=== PATIENT | female | born 1985 | race Caucasian/White ===

== ENCOUNTER 2018-04-05 13:40 | Emergency (ER) | payer SELFPAY ==
--- NOTE | 2018-04-05 14:51 | ER ---
Nurse's Notes [facility] Name: Sea Garcia Age: 32 yrs Sex: Female : 1985 Arrival Date: 04/05/2018 Time: 13:44 Bed 17 Private MD: Diagnosis: Abrasion of right forearm;Contusion of right thigh Presentation: 04/05 13:45 Presenting complaint: Patient states: "I fell [place] and I cut my wrist that sv happened today around 1300." c/o right buttock pain. Transition of care: patient was not received from another setting of care. Complicating Factors: There are no complicating factors for this patient. Onset of symptoms was April 05, 2018 at 13:00. Risk Assessment: Do you want to hurt yourself or someone else? Patient reports no desire to harm self or others. Initial Sepsis Screen: Does the patient meet any 2 criteria? No. Patient's initial sepsis screen is negative. Does the patient have a suspected source of infection? No. Patient's initial sepsis screen is negative. Care prior to arrival: None. 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 - Social history:: Smoking status: Patient/guardian denies using tobacco. - Ebola Screening: : No symptoms or risks identified at this time. - : The history from the nurse's notes was reviewed. Vital Signs: 13:47 BP 114 / 96; Pulse 78; Resp 18; Temp 98.7; Pulse Ox 98% ; Weight 72.57 kg; Height 5 ft. sv 4 in. (162.56 cm); Pain 6/10; 13:47 Body Mass Index 27.46 (72.57 kg, 162.56 cm) sv ED Course: 13:44 Patient arrived in ED. sv 13:46 Triage completed. sv 13:49 Arm band placed on left wrist. sv 13:53 Mickail, Adalberto, PA is PHCP. osman 13:53 Anderson Longo MD is Attending Physician. osman Administered Medications: No medications were administered Outcome: 14:09 Medical screen evaluation completed per provider. Patient declined treatment. lilian 14:51 Discharge ordered by . osman 14:54 Patient left the ED. mb3 Signatures: Gertrude Ace RN RN sv Myers, Amanda, RN RN aj Mickail, Joel, PA PA jmm Barnett, Mark, RN RN mb3 Corrections: (The following items were deleted from the chart) 19:13 19:13 The history from the nurse's notes was reviewed. osman brewer
--- NOTE | 2018-04-05 14:51 | EDPHYS ---
Physician Documentation [facility] Name: Sea Garcia Age: 32 yrs Sex: Female : 1985 Arrival Date: 04/05/2018 Time: 13:44 Bed 17 Private MD: ED Physician Anderson Longo HPI: 04/05 14:05 This 32 yrs old Female presents to ER via Ambulatory with complaints of jmm Laceration. 14:05 Onset: The symptoms/episode began/occurred acutely, just prior to arrival. Patient jmm states she slipped on a boat ramp landing on her right arm and right thigh. Denies other injury. Patient is UTD on tetanus immunization. . 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 - Social history:: Smoking status: Patient/guardian denies using tobacco. - Ebola Screening: : No symptoms or risks identified at this time. - : The history from the nurse's notes was reviewed. ROS: 13:47 Constitutional: Negative for fever, chills, and weight loss. jmm 13:47 Cardiovascular: Negative for chest pain. 13:47 Respiratory: Negative for shortness of breath. 13:47 Skin: Positive for laceration(s). 13:47 All other systems are negative. Exam: 13:47 Cardiovascular: Regular rate and rhythm. No gallops, murmurs, or rubs. Full/Equal [facility] distal pulses. Respiratory: Lungs have equal breath sounds bilaterally, clear to auscultation. No rales, rhonchi or wheezes noted. No increased work of breathing, no retractions or nasal flaring. 13:47 Constitutional: The patient appears in no acute distress, alert, awake. 13:47 Musculoskeletal/extremity: ROM: intact in all extremities. 13:47 Skin: superficial laceration noted to the right forearm, no active bleeding appreciated. 13:47 Neuro: Orientation: is normal, Mentation: is normal, Memory: is normal. 13:47 Musculoskeletal/extremity: no bony tenderness appreciated to the pelvis or femur, no jmm deformity appreciated. Vital Signs: 13:47 BP 114 / 96; Pulse 78; Resp 18; Temp 98.7; Pulse Ox 98% ; Weight 72.57 kg; Height 5 ft. sv 4 in. (162.56 cm); Pain 6/10; 13:47 Body Mass Index 27.46 (72.57 kg, 162.56 cm) sv MDM: 13:47 Data reviewed: vital signs, nurses notes. osman 13:47 Differential diagnosis: laceration. osman 13:47 ED course: The patient's wound is superficial. Due to the patient's risk of infection osman from wound closure, I advised the patient against wound closure. The patient was offered prophylactic antibiotics, the patient declined. . 14:05 Patient medically screened. [facility] Administered Medications: No medications were administered Disposition: 04/06 07:22 Co-signature as Attending Physician, Anderson Longo MD. Disposition: 04/05/18 14:51 Discharged to Home as Medical Screen. Impression: Abrasion of right forearm, Contusion of right thigh. - Condition is Stable. - Medication Reconciliation Form, Thank You Letter, Antibiotic Education, Prescription Opioid Use form. Signatures: Gertrude Ace, RN RN Adalberto Brower PA PA jmm Starr, Gregory, MD MD Marvin Patel RN RN mb3 Corrections: (The following items were deleted from the chart) 04/05 14:54 14:51 04/05/2018 14:51 Discharged to Home as Medical Screen. Impression: Abrasion of mb3 right forearm; Contusion of right thigh. Condition is Stable. Forms are Medication Reconciliation Form, Thank You Letter, Antibiotic Education, Prescription Opioid Use. [facility] 19:13 19:13 The history from the nurse's notes was reviewed. osman brewer
== END 2018-04-05 14:54 | disposition home or self-care (01) ==
LOC: ER 13:40
DX: S50.811A Abrasion of right forearm, initial encounter (principal); S70.11XA Contusion of right thigh, initial encounter; W01.0XXA Fall on same level from slipping, tripping and stumbling without subsequent striking against object, initial encounter; Y92.838 Other recreation area as the place of occurrence of the external cause
CPT/HCPCS: 99281